=== PATIENT | female | born 1995 | race Caucasian/White ===

== ENCOUNTER 2017-02-24 14:26 | Emergency (ER) | payer SELFPAY ==
[~2017-02-24] VITALS: Ht 157.5 cm; Wt 67.0 kg
[2017-02-24 14:55] VITALS: BP 120/60
[2017-02-24] MEDS ORDERED: LEVO50TA8 PO (15:00)
[2017-02-24] MEDS ORDERED: BACITRACIN ZINC OINT UDPKT TOP ONE (19:00)
== END 2017-02-24 22:18 | disposition home or self-care (01) ==
LOC: ER 17:50
DX: L25.9 Unspecified contact dermatitis, unspecified cause (principal); R10.9 Unspecified abdominal pain; E08.9 Diabetes mellitus due to underlying condition without complications; Z86.59 Personal history of other mental and behavioral disorders
CPT/HCPCS: 99282